=== PATIENT | female | born 1975 | race Two or more races ===

== ENCOUNTER → 2023-03-30 14:41 | Outpatient (BNVA) | payer OTHER, SELFPAY | PROVIDERS: Visit Provider Internal Medicine | DX: S50.01XA Contusion of right elbow, initial encounter (principal); S00.03XA Contusion of scalp, initial encounter; W01.0XXA Fall on same level from slipping, tripping and stumbling without subsequent striking against object, initial encounter | CPT/HCPCS: 99203 ==

== ENCOUNTER → 2023-03-31 10:00 | Outpatient (BNVA) | payer OTHER, SELFPAY | PROVIDERS: Visit Provider Internal Medicine | DX: S00.03XA Contusion of scalp, initial encounter (principal); S50.01XA Contusion of right elbow, initial encounter; W01.0XXA Fall on same level from slipping, tripping and stumbling without subsequent striking against object, initial encounter | CPT/HCPCS: 99213 ==

== ENCOUNTER → 2023-04-04 08:05 | Outpatient (BNVA) | payer OTHER, SELFPAY | PROVIDERS: Visit Provider Internal Medicine | DX: H53.9 Unspecified visual disturbance (principal); R51.9 Headache, unspecified; S50.01XA Contusion of right elbow, initial encounter; S30.0XXA Contusion of lower back and pelvis, initial encounter; W01.0XXA Fall on same level from slipping, tripping and stumbling without subsequent striking against object, initial encounter | CPT/HCPCS: 99215 ==

== ENCOUNTER → 2023-04-10 08:09 | Outpatient (BNVA) | payer OTHER, SELFPAY | PROVIDERS: Visit Provider Internal Medicine | DX: S00.03XA Contusion of scalp, initial encounter (principal); S50.01XA Contusion of right elbow, initial encounter; W01.0XXA Fall on same level from slipping, tripping and stumbling without subsequent striking against object, initial encounter | CPT/HCPCS: 99213 ==

== ENCOUNTER → 2023-04-21 10:25 | Outpatient (BNVA) | payer OTHER, SELFPAY | PROVIDERS: Visit Provider Physician Assistant | DX: S00.03XD Contusion of scalp, subsequent encounter (principal); W01.0XXD Fall on same level from slipping, tripping and stumbling without subsequent striking against object, subsequent encounter; H53.9 Unspecified visual disturbance | CPT/HCPCS: 99213 ==

== ENCOUNTER → 2023-04-28 15:15 | Outpatient (BNVA) | payer OTHER, SELFPAY | PROVIDERS: Visit Provider Internal Medicine | DX: S00.03XD Contusion of scalp, subsequent encounter (principal); S50.01XD Contusion of right elbow, subsequent encounter; W01.0XXD Fall on same level from slipping, tripping and stumbling without subsequent striking against object, subsequent encounter | CPT/HCPCS: 99213 ==